=== PATIENT | male | born 1995 | race Caucasian/White ===

== ENCOUNTER 2017-03-03 12:22 | Emergency (ER) | payer OTHER, MEDICAID ==
[~2017-03-03] VITALS: Ht 177.8 cm; Wt 68.0 kg
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
[2017-03-03] MEDS ORDERED: LORAZEPAM INJ 2 MG/ML VIAL ONE (12:48)
--- NOTE | 2017-03-03 12:50 | NUR ---
DR DAVIS AT BEDSIDE FOR EVAL.
[2017-03-03] MEDS: LORAZEPAM INJ 2 MG/ML VIAL IV ONE (12:58)
[2017-03-03 12:59] LABS: BASOPHILS # (AUTO) 0.1 /CMM (0.0-0.2); BASOPHILS % (AUTO) 0.9 % (0.0-2.0); EOSINOPHILS # (AUTO) 0.1 /CMM (0.0-0.7); EOSINOPHILS % (AUTO) 0.9 % (0.0-6.0); HEMATOCRIT 48 % (39-51); HEMOGLOBIN 16.1 g/dL (13.5-17.5); LYMPHOCYTES # (AUTO) 2.5 /CMM (0.8-4.8); LYMPHOCYTES % (AUTO) 22.7 % (20.0-44.0); MEAN CORPUSCULAR HEMOGLOBIN 28 PG (26.0-33.0); MEAN CORPUSCULAR HGB CONC 34 g/dl (31.0-36.0); MEAN CORPUSCULAR VOLUME 85 fL (80-96); NEUTROPHILS # (AUTO) 7.3 /CMM (1.8-8.9); NEUTROPHILS % (AUTO) 66.5 % (43.0-81.0); PLATELET COUNT (AUTO) 272 /CMM (150-450); RDW COEFFICIENT OF VARIATION 11.7 (11.5-15.0); RED BLOOD CELL COUNT(AUTO) 5.69 MIL/uL (4.5-6.0)
--- NOTE | 2017-03-03 13:01 | NUR ---
PT TO RADIOLOGY FOR HEAD CT SCAN VIA [facility].
[2017-03-03 13:07] LABS: CALCIUM, SERUM 8.6 mg/dL (8.5-10.1); CREATININE 1.3 mg/dL (0.6-1.3); POTASSIUM 3.9 mmol/L (3.5-5.1)
[2017-03-03] MEDS: LEVETIRACETAM (500MG) 1,000 MG in IV NS 0.9% 100 ML IV SCH (13:10)
[2017-03-03] MEDS: IV NS 0.9% 1,000 ML BAG IV ONE (13:12)
[2017-03-03 13:13] LABS: ALBUMIN 3.5 g/dL (3.4-5.0); BILIRUBIN,TOTAL 1.5 mg/dL (0.2-1.0); TOTAL PROTEIN, SERUM 6.2 g/dL (6.4-8.2)
--- NOTE | 2017-03-03 14:30 | NUR ---
Patient discharged to home in stable condition. Written and verbal after care instructions given. Patient verbalizes understanding of instruction.IV removed. Catheter intact and site benign. Pressure and 4x4 applied to site. No bleeding noted.
[2017-03-03 14:31] VITALS: BP 122/98
== END 2017-03-03 14:32 | disposition home or self-care (01) ==
LOC: EDBD 12:25 → ER 12:25
DX: G40.909 Epilepsy, unspecified, not intractable, without status epilepticus (principal); F15.10 Other stimulant abuse, uncomplicated; R51 Headache
CPT/HCPCS: 36415; 70450-TC; 80053-TC; 85025-TC; A4606; J1953; J2060; J7030; Z7610